=== PATIENT | male | born 1945 | race Caucasian/White ===

== ENCOUNTER 2022-05-14 17:33 | Emergency (ER) | payer MEDICARE ==
[2022-05-14] MEDS: Lactated Ringers 1,000 ML IV SCH ×2 (18:25→20:04)
[2022-05-14 18:46] LABS: ESTIMATED GFR 20 mL/min (>60)
[2022-05-14] MEDS: Levofloxacin/Dextrose 5%-Water 750 MG in Premix Bag 1 BAG IV SCH (18:57)
[2022-05-14 19:13] LABS: CORONAVIRUS COVID-19 NAA NEGATIVE (NEGATIVE)
[2022-05-14 20:02] VITALS: BP 99/48; PULSE 82
[2022-05-14] MEDS ORDERED: Vancomycin 2 GM in Sodium Chloride 0.9% 500 ML IV ONE (20:05)
== END 2022-05-14 20:58 ==
LOC: JP.ED 17:33
DX: A41.9 Sepsis, unspecified organism (principal); R65.21 Severe sepsis with septic shock; N17.9 Acute kidney failure, unspecified; E78.00 Pure hypercholesterolemia, unspecified; I10 Essential (primary) hypertension; M19.90 Unspecified osteoarthritis, unspecified site; E66.9 Obesity, unspecified; Z68.34 Body mass index [BMI] 34.0-34.9, adult; Z79.82 Long term (current) use of aspirin; Z79.899 Other long term (current) drug therapy; Z20.822 Contact with and (suspected) exposure to COVID-19
CPT/HCPCS: 0241U; 36415; 71045; 71045-26; 80053; 81001; 83605; 84145; 85025; 86140; 87040; 87077; 87086; 87088; 87186; 96361; 96365; 96366; 96367; 99285; 99285-25; J1956; J3370; J7040; J7120

== ENCOUNTER 2022-06-03 01:26 | Emergency (ER) | payer MEDICARE ==
[2022-06-03 04:38] LABS: CORONAVIRUS COVID-19 NAA NEGATIVE (NEGATIVE)
[2022-06-03] MEDS ORDERED: Levofloxacin/Dextrose 5%-Water 500 MG in Premix Bag 1 BAG IV ONE (05:21)
[2022-06-03 06:12] VITALS: PULSE 80
[2022-06-03 07:04] VITALS: BP 112/55
== END 2022-06-03 10:48 | disposition home or self-care (01) ==
LOC: JP.ED 01:26
DX: J18.9 Pneumonia, unspecified organism (principal); S20.312A Abrasion of left front wall of thorax, initial encounter; S80.211A Abrasion, right knee, initial encounter; E78.00 Pure hypercholesterolemia, unspecified; I10 Essential (primary) hypertension; E66.9 Obesity, unspecified; Z79.82 Long term (current) use of aspirin; Z79.899 Other long term (current) drug therapy; Z79.01 Long term (current) use of anticoagulants; Z20.822 Contact with and (suspected) exposure to COVID-19; Z68.37 Body mass index [BMI] 37.0-37.9, adult; W18.09XA Striking against other object with subsequent fall, initial encounter; Y92.009 Unspecified place in unspecified non-institutional (private) residence as the place of occurrence of the external cause
CPT/HCPCS: 0241U; 36415; 71046; 71250; 80048; 83605; 85025; 87040; 96365; 99284; J1956

== ENCOUNTER 2022-06-05 11:26 | Inpatient (IN) | payer MEDICARE ==
[2022-06-05 12:44] LABS: ESTIMATED GFR 41 mL/min (>60)
[2022-06-05] MEDS ORDERED: Iopamidol 755 Mg/ML 100 ML Bottle IV SCH (13:45)
[2022-06-05] MEDS ORDERED: Sodium Chloride 0.9% 100 ML IV SCH (13:45)
[2022-06-05 14:27] LABS: CORONAVIRUS COVID-19 NAA NEGATIVE (NEGATIVE)
[2022-06-05] MEDS ORDERED: Meropenem 1 GM in Sodium Chloride 0.9% 100 ML IV SCH (16:15)
[2022-06-05] MEDS ORDERED: Benzonatate 100 MG Cap PO PRN (16:39)
[2022-06-05] MEDS ORDERED: Ondansetron 4 MG Tab.DIS PO PRN (16:39)
[2022-06-05] MEDS ORDERED: Acetaminophen 325 MG Tab PO PRN (16:39)
[2022-06-05] MEDS ORDERED: Ondansetron 4 MG/2 ML SDV IV PRN (16:39)
[2022-06-05] MEDS ORDERED: Magnesium Hydroxide 400 MG/5 ML Susp 30 ML Cup PO PRN (16:39)
[2022-06-05] MEDS ORDERED: guaiFENesin/Dextromethorphan 100-10 MG/5 ML Soln 10 ML Cup PO PRN (16:39)
[2022-06-05] MEDS: Enoxaparin 40 MG/0.4 ML Syringe SUBCUT SCH (17:16)
[2022-06-05] MEDS: Meropenem 1 GM in Sodium Chloride 0.9% 100 ML IV SCH (17:16)
[2022-06-05] MEDS: Sodium Chloride 0.9% 1,000 ML IV SCH (17:17)
[2022-06-05] MEDS: Melatonin 3 MG Tab PO SCH (20:19)
[2022-06-05] MEDS: Latanoprost 0.005% Ophth Soln 2.5 ML Bottle EYEBOTH SCH (20:19)
[2022-06-05] MEDS: Lactobacillus Rhamnosus GG (Probiotic) Cap PO SCH (20:19)
[2022-06-06] MEDS: Sodium Chloride 0.9% 1,000 ML IV SCH (02:00)
[2022-06-06] MEDS: Meropenem 1 GM in Sodium Chloride 0.9% 100 ML IV SCH ×2 (05:00→17:00)
[2022-06-06] MEDS ORDERED: DAPTOmycin 500 MG Vial IV SCH (07:00)
[2022-06-06] MEDS: Pantoprazole 40 MG Tab.CR PO SCH (07:53)
[2022-06-06] MEDS: DAPTOmycin 500 MG in Sodium Chloride 0.9% 10 ML IV SCH (07:56)
[2022-06-06] MEDS: Metoprolol Succinate 50 MG Tab.ER PO SCH (08:05)
[2022-06-06] MEDS: Tamsulosin 0.4 MG Cap.ER PO SCH (08:06)
[2022-06-06] MEDS: Lactobacillus Rhamnosus GG (Probiotic) Cap PO SCH ×2 (08:06→20:00)
[2022-06-06] MEDS: Folic Acid 1 MG Tab PO SCH (08:06)
[2022-06-06] MEDS: Aspirin 81 MG Tab.EC PO SCH (08:07)
[2022-06-06] MEDS: Timolol Maleate 0.5% Ophth Soln 5 ML Bottle EYEBOTH SCH (08:07)
[2022-06-06] MEDS: Allopurinol 100 MG Tab PO SCH (08:07)
[2022-06-06] MEDS ORDERED: Timolol Maleate 0.25% Ophth Soln 5 ML Bottle EYEBOTH SCH (09:00)
[2022-06-06] MEDS ORDERED: Levofloxacin/Dextrose 5%-Water 750 MG in Premix Bag 1 BAG IV SCH (09:00)
[2022-06-06] MEDS ORDERED: Potassium Chloride 20 MEQ Tab.ER PO ONE (09:00)
[2022-06-06] MEDS ORDERED: Zinc Oxide 20% Oint 56.7 GM Tube TOP PRN (12:23)
[2022-06-06] MEDS ORDERED: Nystatin Topical Powder 15 GM Bottle TOP PRN (12:24)
[2022-06-06] MEDS: Enoxaparin 40 MG/0.4 ML Syringe SUBCUT SCH (17:01)
[2022-06-06] MEDS: Latanoprost 0.005% Ophth Soln 2.5 ML Bottle EYEBOTH SCH (20:00)
[2022-06-06] MEDS: Melatonin 3 MG Tab PO SCH (20:00)
[2022-06-07] MEDS: Meropenem 1 GM in Sodium Chloride 0.9% 100 ML IV SCH ×3 (04:15→19:23)
[2022-06-07] MEDS: Pantoprazole 40 MG Tab.CR PO SCH (08:21)
[2022-06-07] MEDS: Metoprolol Succinate 50 MG Tab.ER PO SCH (08:21)
[2022-06-07] MEDS: Allopurinol 100 MG Tab PO SCH (08:22)
[2022-06-07] MEDS: Aspirin 81 MG Tab.EC PO SCH (08:22)
[2022-06-07] MEDS: Tamsulosin 0.4 MG Cap.ER PO SCH (08:22)
[2022-06-07] MEDS: Timolol Maleate 0.5% Ophth Soln 5 ML Bottle EYEBOTH SCH (08:22)
[2022-06-07] MEDS: Folic Acid 1 MG Tab PO SCH (08:23)
[2022-06-07] MEDS: Lactobacillus Rhamnosus GG (Probiotic) Cap PO SCH ×2 (08:23→20:26)
[2022-06-07] MEDS: DAPTOmycin 500 MG in Sodium Chloride 0.9% 10 ML IV SCH (08:38)
[2022-06-07] MEDS: Levofloxacin/Dextrose 5%-Water 750 MG in Premix Bag 1 BAG IV SCH (08:46)
[2022-06-07] MEDS: Magnesium Sulfate/Water 2 GM in Premix Bag 1 BAG IV SCH ×3 (10:29→20:29)
[2022-06-07] MEDS: Enoxaparin 40 MG/0.4 ML Syringe SUBCUT SCH (17:37)
[2022-06-07] MEDS: Melatonin 3 MG Tab PO SCH (20:26)
[2022-06-07] MEDS: Latanoprost 0.005% Ophth Soln 2.5 ML Bottle EYEBOTH SCH (20:27)
[2022-06-08] MEDS: Magnesium Sulfate/Water 2 GM in Premix Bag 1 BAG IV SCH ×4 (02:00→20:16)
[2022-06-08] MEDS: Meropenem 1 GM in Sodium Chloride 0.9% 100 ML IV SCH ×3 (04:02→19:03)
[2022-06-08] MEDS: DAPTOmycin 500 MG in Sodium Chloride 0.9% 10 ML IV SCH (07:27)
[2022-06-08] MEDS: Pantoprazole 40 MG Tab.CR PO SCH (07:27)
[2022-06-08] MEDS: Levofloxacin/Dextrose 5%-Water 750 MG in Premix Bag 1 BAG IV SCH (08:50)
[2022-06-08] MEDS: Magnesium Oxide 400 MG Tab PO SCH ×2 (08:50→20:17)
[2022-06-08] MEDS: Metoprolol Succinate 50 MG Tab.ER PO SCH (08:51)
[2022-06-08] MEDS: Timolol Maleate 0.5% Ophth Soln 5 ML Bottle EYEBOTH SCH (08:51)
[2022-06-08] MEDS: Aspirin 81 MG Tab.EC PO SCH (08:52)
[2022-06-08] MEDS: Allopurinol 100 MG Tab PO SCH (08:52)
[2022-06-08] MEDS: Lactobacillus Rhamnosus GG (Probiotic) Cap PO SCH ×2 (08:52→20:17)
[2022-06-08] MEDS: Tamsulosin 0.4 MG Cap.ER PO SCH (08:53)
[2022-06-08] MEDS: Folic Acid 1 MG Tab PO SCH (08:53)
[2022-06-08] MEDS: Enoxaparin 40 MG/0.4 ML Syringe SUBCUT SCH (17:06)
[2022-06-08] MEDS: Albuterol 0.083% 2.5 MG/3 ML Neb Soln NEB PRN (17:41)
[2022-06-08] MEDS ORDERED: Morphine 2 MG/ML SYRINGE IVPUSH ONE (19:43)
[2022-06-08] MEDS: Melatonin 3 MG Tab PO SCH (20:17)
[2022-06-08] MEDS: Latanoprost 0.005% Ophth Soln 2.5 ML Bottle EYEBOTH SCH (20:17)
[2022-06-09] MEDS ORDERED: Morphine 2 MG/ML SYRINGE IVPUSH ONE (03:12)
[2022-06-09] MEDS ORDERED: methylPREDNISolone Sodium Succinate 125 MG/2 ML SDV IVPUSH ONE (03:13)
[2022-06-09] MEDS: Albuterol 0.083% 2.5 MG/3 ML Neb Soln NEB PRN ×2 (03:31→23:41)
[2022-06-09] MEDS: Meropenem 1 GM in Sodium Chloride 0.9% 100 ML IV SCH ×3 (03:47→19:58)
[2022-06-09 04:04] LABS: ESTIMATED GFR 78 mL/min (>60)
[2022-06-09] MEDS ORDERED: Furosemide 40 MG/4 ML VIAL IVPUSH ONE ×2 (05:19→14:00)
[2022-06-09] MEDS: Pantoprazole 40 MG Tab.CR PO SCH (07:41)
[2022-06-09] MEDS: DAPTOmycin 500 MG in Sodium Chloride 0.9% 10 ML IV SCH (07:42)
[2022-06-09] MEDS: Tamsulosin 0.4 MG Cap.ER PO SCH (09:23)
[2022-06-09] MEDS: Allopurinol 100 MG Tab PO SCH (09:23)
[2022-06-09] MEDS: Lactobacillus Rhamnosus GG (Probiotic) Cap PO SCH ×2 (09:23→20:48)
[2022-06-09] MEDS: Metoprolol Succinate 50 MG Tab.ER PO SCH (09:24)
[2022-06-09] MEDS: Magnesium Oxide 400 MG Tab PO SCH ×2 (09:24→20:49)
[2022-06-09] MEDS: Folic Acid 1 MG Tab PO SCH (09:24)
[2022-06-09] MEDS: Levofloxacin/Dextrose 5%-Water 750 MG in Premix Bag 1 BAG IV SCH (09:24)
[2022-06-09] MEDS: Aspirin 81 MG Tab.EC PO SCH (09:25)
[2022-06-09] MEDS: Timolol Maleate 0.5% Ophth Soln 5 ML Bottle EYEBOTH SCH (09:25)
[2022-06-09] MEDS: methylPREDNISolone Sodium Succinate 40 MG/1 ML SDV IVPUSH SCH ×2 (14:38→21:00)
[2022-06-09] MEDS: Enoxaparin 40 MG/0.4 ML Syringe SUBCUT SCH (18:13)
[2022-06-09] MEDS: Melatonin 3 MG Tab PO SCH (20:49)
[2022-06-09] MEDS: Latanoprost 0.005% Ophth Soln 2.5 ML Bottle EYEBOTH SCH (20:49)
[2022-06-10] MEDS ORDERED: Furosemide 40 MG/4 ML VIAL ONE (03:40)
[2022-06-10] MEDS: Meropenem 1 GM in Sodium Chloride 0.9% 100 ML IV SCH ×3 (04:18→21:27)
[2022-06-10] MEDS: methylPREDNISolone Sodium Succinate 40 MG/1 ML SDV IVPUSH SCH ×3 (05:36→21:32)
[2022-06-10] MEDS ORDERED: Furosemide 40 MG/4 ML VIAL IVPUSH ONE (06:00)
[2022-06-10] MEDS: DAPTOmycin 500 MG in Sodium Chloride 0.9% 10 ML IV SCH (06:11)
[2022-06-10] MEDS: Magnesium Oxide 400 MG Tab PO SCH ×2 (08:20→21:32)
[2022-06-10] MEDS: Timolol Maleate 0.5% Ophth Soln 5 ML Bottle EYEBOTH SCH (08:20)
[2022-06-10] MEDS: Lactobacillus Rhamnosus GG (Probiotic) Cap PO SCH ×2 (08:21→21:32)
[2022-06-10] MEDS: Allopurinol 100 MG Tab PO SCH (08:21)
[2022-06-10] MEDS: Aspirin 81 MG Tab.EC PO SCH (08:22)
[2022-06-10] MEDS: Pantoprazole 40 MG Tab.CR PO SCH (08:22)
[2022-06-10] MEDS: Tamsulosin 0.4 MG Cap.ER PO SCH (08:25)
[2022-06-10] MEDS: Levofloxacin/Dextrose 5%-Water 750 MG in Premix Bag 1 BAG IV SCH (08:26)
[2022-06-10] MEDS: Folic Acid 1 MG Tab PO SCH (11:09)
[2022-06-10] MEDS: Metoprolol Succinate 50 MG Tab.ER PO SCH (11:10)
[2022-06-10] MEDS: Furosemide 40 MG/4 ML VIAL IVPUSH SCH (18:17)
[2022-06-10] MEDS: Enoxaparin 40 MG/0.4 ML Syringe SUBCUT SCH (18:17)
[2022-06-10] MEDS: Albuterol 0.083% 2.5 MG/3 ML Neb Soln NEB PRN (21:30)
[2022-06-10] MEDS: Melatonin 3 MG Tab PO SCH (21:31)
[2022-06-10] MEDS: Latanoprost 0.005% Ophth Soln 2.5 ML Bottle EYEBOTH SCH (21:32)
[2022-06-11] MEDS: Meropenem 1 GM in Sodium Chloride 0.9% 100 ML IV SCH ×3 (04:00→20:59)
[2022-06-11] MEDS: Furosemide 40 MG/4 ML VIAL IVPUSH SCH ×2 (06:01→17:46)
[2022-06-11] MEDS: methylPREDNISolone Sodium Succinate 40 MG/1 ML SDV IVPUSH SCH ×3 (06:01→21:00)
[2022-06-11] MEDS: Albuterol 0.083% 2.5 MG/3 ML Neb Soln NEB PRN (07:12)
[2022-06-11] MEDS: DAPTOmycin 500 MG in Sodium Chloride 0.9% 10 ML IV SCH (07:43)
[2022-06-11] MEDS: Pantoprazole 40 MG Tab.CR PO SCH (07:43)
[2022-06-11] MEDS: Levofloxacin/Dextrose 5%-Water 750 MG in Premix Bag 1 BAG IV SCH (09:04)
[2022-06-11] MEDS: Metoprolol Succinate 50 MG Tab.ER PO SCH (09:05)
[2022-06-11] MEDS: Allopurinol 100 MG Tab PO SCH (09:05)
[2022-06-11] MEDS: Folic Acid 1 MG Tab PO SCH (09:06)
[2022-06-11] MEDS: Lactobacillus Rhamnosus GG (Probiotic) Cap PO SCH ×2 (09:06→20:59)
[2022-06-11] MEDS: Tamsulosin 0.4 MG Cap.ER PO SCH (09:06)
[2022-06-11] MEDS: Aspirin 81 MG Tab.EC PO SCH (09:06)
[2022-06-11] MEDS: Timolol Maleate 0.5% Ophth Soln 5 ML Bottle EYEBOTH SCH (09:06)
[2022-06-11] MEDS: Magnesium Oxide 400 MG Tab PO SCH ×2 (09:06→20:59)
[2022-06-11 14:39] LABS: CORONAVIRUS COVID-19 NAA NEGATIVE (NEGATIVE)
[2022-06-11] MEDS: Enoxaparin 40 MG/0.4 ML Syringe SUBCUT SCH (17:51)
[2022-06-11] MEDS: Melatonin 3 MG Tab PO SCH (21:00)
[2022-06-11] MEDS: Latanoprost 0.005% Ophth Soln 2.5 ML Bottle EYEBOTH SCH (21:01)
[2022-06-12] MEDS: Albuterol 0.083% 2.5 MG/3 ML Neb Soln NEB PRN (01:40)
[2022-06-12] MEDS ORDERED: LORazepam 2 MG/ML SDV IVPUSH PRN (02:48)
[2022-06-12] MEDS: Meropenem 1 GM in Sodium Chloride 0.9% 100 ML IV SCH ×3 (04:32→20:27)
[2022-06-12] MEDS: Furosemide 40 MG/4 ML VIAL IVPUSH SCH ×2 (06:37→17:44)
[2022-06-12] MEDS: methylPREDNISolone Sodium Succinate 40 MG/1 ML SDV IVPUSH SCH ×3 (06:37→21:43)
[2022-06-12] MEDS: DAPTOmycin 500 MG in Sodium Chloride 0.9% 10 ML IV SCH (07:59)
[2022-06-12] MEDS: Pantoprazole 40 MG Tab.CR PO SCH (08:07)
[2022-06-12] MEDS: Lactobacillus Rhamnosus GG (Probiotic) Cap PO SCH ×2 (08:57→20:27)
[2022-06-12] MEDS: Magnesium Oxide 400 MG Tab PO SCH ×2 (08:57→20:27)
[2022-06-12] MEDS: Tamsulosin 0.4 MG Cap.ER PO SCH (10:25)
[2022-06-12] MEDS: Metoprolol Succinate 50 MG Tab.ER PO SCH (10:25)
[2022-06-12] MEDS: Folic Acid 1 MG Tab PO SCH (10:26)
[2022-06-12] MEDS: Aspirin 81 MG Tab.EC PO SCH (10:27)
[2022-06-12] MEDS: Allopurinol 100 MG Tab PO SCH (10:28)
[2022-06-12] MEDS: Levofloxacin/Dextrose 5%-Water 750 MG in Premix Bag 1 BAG IV SCH (10:30)
[2022-06-12] MEDS: Timolol Maleate 0.5% Ophth Soln 5 ML Bottle EYEBOTH SCH (10:32)
[2022-06-12] MEDS ORDERED: Iopamidol 755 Mg/ML 100 ML Bottle IV SCH (13:30)
[2022-06-12] MEDS ORDERED: Sodium Chloride 0.9% 75 ML IV ONE (13:30)
[2022-06-12] MEDS ORDERED: Sodium Chloride 0.9% 10 ML Syringe FLUSH PRN (13:30)
[2022-06-12] MEDS: Enoxaparin 40 MG/0.4 ML Syringe SUBCUT SCH (17:43)
[2022-06-12] MEDS: Melatonin 3 MG Tab PO SCH (20:27)
[2022-06-12] MEDS: Latanoprost 0.005% Ophth Soln 2.5 ML Bottle EYEBOTH SCH (20:28)
[2022-06-13] MEDS: Meropenem 1 GM in Sodium Chloride 0.9% 100 ML IV SCH ×3 (04:23→19:55)
[2022-06-13] MEDS: Furosemide 40 MG/4 ML VIAL IVPUSH SCH ×2 (05:15→17:19)
[2022-06-13] MEDS: methylPREDNISolone Sodium Succinate 40 MG/1 ML SDV IVPUSH SCH (05:15)
[2022-06-13] MEDS: Pantoprazole 40 MG Tab.CR PO SCH (07:57)
[2022-06-13] MEDS: DAPTOmycin 500 MG in Sodium Chloride 0.9% 10 ML IV SCH (07:57)
[2022-06-13] MEDS: Magnesium Oxide 400 MG Tab PO SCH ×2 (08:13→20:33)
[2022-06-13] MEDS: Aspirin 81 MG Tab.EC PO SCH (08:14)
[2022-06-13] MEDS: Folic Acid 1 MG Tab PO SCH (08:14)
[2022-06-13] MEDS: Allopurinol 100 MG Tab PO SCH (08:15)
[2022-06-13] MEDS: Lactobacillus Rhamnosus GG (Probiotic) Cap PO SCH ×2 (08:16→20:33)
[2022-06-13] MEDS: Tamsulosin 0.4 MG Cap.ER PO SCH (08:16)
[2022-06-13] MEDS: Metoprolol Succinate 50 MG Tab.ER PO SCH (08:17)
[2022-06-13] MEDS: Timolol Maleate 0.5% Ophth Soln 5 ML Bottle EYEBOTH SCH (08:19)
[2022-06-13] MEDS: Levofloxacin/Dextrose 5%-Water 750 MG in Premix Bag 1 BAG IV SCH (08:20)
[2022-06-13] MEDS ORDERED: Vancomycin 1 GM SDV IV SCH (13:00)
[2022-06-13] MEDS: Morphine 2 MG/ML SYRINGE IVPUSH PRN ×5 (13:19→22:42)
[2022-06-13] MEDS: LORazepam 2 MG/ML SDV IVPUSH PRN ×2 (13:43→23:42)
[2022-06-13] MEDS ORDERED: Vancomycin 2 GM in Sodium Chloride 0.9% 500 ML IV ONE (16:00)
[2022-06-13] MEDS: Enoxaparin 40 MG/0.4 ML Syringe SUBCUT SCH (17:18)
[2022-06-13] MEDS: Albuterol 0.083% 2.5 MG/3 ML Neb Soln NEB PRN (17:32)
[2022-06-13] MEDS: Melatonin 3 MG Tab PO SCH (20:33)
[2022-06-13] MEDS: Latanoprost 0.005% Ophth Soln 2.5 ML Bottle EYEBOTH SCH (20:33)
[2022-06-14] MEDS: Morphine 2 MG/ML SYRINGE IVPUSH PRN ×12 (00:22→16:16)
[2022-06-14] MEDS: Meropenem 1 GM in Sodium Chloride 0.9% 100 ML IV SCH ×2 (03:47→11:59)
[2022-06-14] MEDS: Furosemide 40 MG/4 ML VIAL IVPUSH SCH (05:05)
[2022-06-14] MEDS: LORazepam 2 MG/ML SDV IVPUSH PRN ×3 (05:16→15:00)
[2022-06-14] MEDS ORDERED: predniSONE 20 MG Tab PO SCH (08:00)
[2022-06-14] MEDS: Pantoprazole 40 MG Tab.CR PO SCH (08:10)
[2022-06-14] MEDS: Lactobacillus Rhamnosus GG (Probiotic) Cap PO SCH (08:11)
[2022-06-14] MEDS: Folic Acid 1 MG Tab PO SCH (08:12)
[2022-06-14] MEDS: Magnesium Oxide 400 MG Tab PO SCH (08:12)
[2022-06-14] MEDS: Aspirin 81 MG Tab.EC PO SCH (08:12)
[2022-06-14] MEDS: Tamsulosin 0.4 MG Cap.ER PO SCH (08:12)
[2022-06-14] MEDS: Magnesium Sulfate/Water 2 GM in Premix Bag 1 BAG IV SCH ×2 (09:13→13:33)
[2022-06-14] MEDS: Timolol Maleate 0.5% Ophth Soln 5 ML Bottle EYEBOTH SCH (09:14)
[2022-06-14] MEDS: Metoprolol Succinate 50 MG Tab.ER PO SCH (09:38)
[2022-06-14] MEDS: Allopurinol 100 MG Tab PO SCH (09:38)
[2022-06-14 14:38] VITALS: BP 88/51; PULSE 117
== END 2022-06-14 16:20 | disposition expired | DRG 193 ==
LOC: JP.ED 11:26 → JP.MS 16:13 → JP.ICU 06-09 13:30
PROVIDERS: ADMIT Internal Medicine; ATTEND Hospitalist
DX: J15.9 Unspecified bacterial pneumonia (principal); J96.01 Acute respiratory failure with hypoxia; N17.9 Acute kidney failure, unspecified; E87.1 Hypo-osmolality and hyponatremia; R09.02 Hypoxemia; J30.9 Allergic rhinitis, unspecified; I12.9 Hypertensive chronic kidney disease with stage 1 through stage 4 chronic kidney disease, or unspecified chronic kidney disease; Z66 Do not resuscitate; M19.90 Unspecified osteoarthritis, unspecified site; E78.00 Pure hypercholesterolemia, unspecified; M10.9 Gout, unspecified; I80.9 Phlebitis and thrombophlebitis of unspecified site; D63.1 Anemia in chronic kidney disease; F41.9 Anxiety disorder, unspecified; N18.32 Chronic kidney disease, stage 3b; E87.6 Hypokalemia; Z99.81 Dependence on supplemental oxygen; Z20.822 Contact with and (suspected) exposure to COVID-19; E66.9 Obesity, unspecified; Z98.49 Cataract extraction status, unspecified eye; Z90.89 Acquired absence of other organs; Z90.49 Acquired absence of other specified parts of digestive tract; Z98.890 Other specified postprocedural states; Z79.82 Long term (current) use of aspirin; Z79.899 Other long term (current) drug therapy; Z68.39 Body mass index [BMI] 39.0-39.9, adult
CPT/HCPCS: 0241U; 36415; 36600; 51798; 71045; 71275; 80048; 80053; 82550; 82803; 83605; 83735; 83880; 84145; 85025; 85027; 85379; 86140; 94640; 94667; 94668; 97110; 97162; 97165; 97530; 99222; 99232; 99233; 99238; 99285; A9270-GY; J0878; J1642; J1650; J1940; J1956; J2060; J2185; J2270; J2920; J2930; J3370; J3475; J3490; J7030; J7040; J7050; Q9967